=== PATIENT | male | born 1980 | race African-American/Black ===

== ENCOUNTER 2018-09-30 02:01 | Emergency (ER) | payer OTHER ==
[~2018-09-30] VITALS: Ht 172.7 cm; Wt 97.5 kg
[2018-09-30 02:15] VITALS: BP 126/78
--- NOTE | 2018-09-30 02:15 | NUR ---
ED Nurse Note: Patient walked into ED c/o "yellow rachel" penile discharge that started last week denies any pain, just when he urinates.
[2018-09-30] MEDS ORDERED: NKM (02:19)
[2018-09-30] MEDS ORDERED: DOXYCYCLINE MO100 MG ORAL (02:57)
[2018-09-30] MEDS ORDERED: Lidocaine 1% MPF 10mg/ml 5ml INJ ONE (03:00)
[2018-09-30 03:05] VITALS: BP 126/78
--- NOTE | 2018-09-30 03:05 | NUR ---
ED Nurse Note: Patient cleared cleared for discharge per ERMD. AO4. NAD. VSS. Patient given prescriptions and discharge instructions; verbalized understanding. ID removed. Patient ambulated steady out of ED with all belongings.
--- NOTE | 2018-10-04 15:17 | Emergency Room Report ---
History of Present Illness General Chief Complaint: Male Urogenital Problems Source: Patient Present Illness HPI 38-year-old male brought in by self after increased dysuria and urethral discharge. Patient states that he had been having unprotected sex prior to onset of symptoms. He denies any fever or testicular swelling. He denies prior history of HIV. He reports having prior episode of chlamydia. Allergies: Coded Allergies: No Known Allergies (Unverified , 09/30/18) Patient History Past Medical History: see triage record Reviewed Nursing Documentation: PMH: Agreed; PSxH: Agreed Nursing Documentation-PMH Past Medical History: No Stated History Review of Systems All Other Systems: negative except mentioned in HPI Physical Exam General Appearance: well appearing, no apparent distress, alert, GCS 15 Head: normocephalic, atraumatic ENT: hearing grossly normal, normal voice Neck: full range of motion, supple Respiratory: no respiratory distress, speaking full sentences Cardiovascular #1: normal inspection Gastrointestinal: normal inspection Musculoskeletal: no calf tenderness Neurologic: normal gait Psychiatric: mood/affect normal Skin: no rash Medical Decision Making Diagnostic Impression: Primary Impression: Urethritis ER Course Patient presented for dysuria. Differential diagnosis included was not limited to appendicitis, urinary tract infection, urethritis, herpes among others. Patient has a benign exam and does not appear to require any further imaging or laboratory testing at this time. Patient symptoms are consistent with a urethritis. Patient will be empirically treated. He was advised to have outpatient STD testing. He was advised to return if any worsening of condition. Status: improved Disposition: HOME, SELF-CARE Condition: Stable Scripts Doxycycline Monohydrate* (DOXYCYCLINE MONOHYDRATE*) 100 Mg Capsule 100 MG ORAL Q12H, #14 CAP 0 Refills Prov: Romaine Crespo MD 09/30/18 Referrals: [facility],REFERRING (PCP) Patient Instructions: Urethritis, Adult Romaine Crespo MD Oct 04, 2018 15:17
== END 2018-09-30 03:05 | disposition home or self-care (01) ==
LOC: EMR 02:48
DX: N34.2 Other urethritis (principal)
CPT/HCPCS: 96372; 96374; 99284; J0696